=== PATIENT | female | born 1980 | race African-American/Black ===

== ENCOUNTER 2019-01-19 15:00 | Emergency (ER) | payer OTHER ==
[2019-01-19 15:17] VITALS: BP 118/64; PULSE 85; TEMP 97.8; BMI 27.3
--- NOTE | 2019-01-19 15:19 | PDOC ---
Rapid Medical Evaluation Chief Complaint: Pain Time Seen by Provider: 01/19/19 15:17 Medical Evaluation: Allergies Allergy/AdvReac Type Severity Reaction Status Date / Time No Known Allergies Allergy Verified 01/19/19 15:12 Vital Signs Temp Pulse Resp BP Pulse Ox 97.8 F 85 17 118/64 96 01/19/19 15:13 01/19/19 15:13 01/19/19 15:13 01/19/19 15:13 01/19/19 15:13 01/19/19 15:18 Pt c/o: rt heel pain, believes it is gout,denies increased temperature or redness to area Pt on brief exam: no edema or erythema, tender to calcanus region Pt ordered for: cbc, uric acid and heel xray Pt to proceed to the ED Discharge Disposition - Diagnosis Heel pain - Referrals - Patient Instructions - Post Discharge Activity
--- NOTE | 2019-01-19 16:22 | PDOC ---
History of Present Illness - General Chief Complaint: Pain Stated Complaint: RT. FOOT PAIN Time Seen by Provider: 01/19/19 15:17 History Source: Patient Exam Limitations: No Limitations - History of Present Illness Initial Comments: 01/19/19 16:23 38 year old female with surgical history of and medical history of gout presents for right foot pain x 3 weeks. Reports she usually gets an injection in her foot when she has pain. Denies numbness or tingling in toes. Occurred: reports: other (3 weeks ) Lower Extremity Pain Location: right: foot Method of Injury: Yes: unknown Modifying Factors: improves with: None Lower Ext. Injury Location - Specific Injury Location Hips: bilateral hip: no evidence of injury Legs: bilateral: normal inspection Knees: bilateral no evidence of injury Ankle: bilateral no evidence of injury Foot: bilateral foot no evidence of injury Extremity Pain Location - Extremity Pain Location Extremity Pain Locations: right: foot Past History - Travel Traveled outside of the country in the last 30 days: No Close contact w/someone who was outside of country & ill: No - Past Medical History Allergies/Adverse Reactions: Allergies Allergy/AdvReac Type Severity Reaction Status Date / Time risperidone Allergy Verified 01/19/19 16:08 Home Medications: Ambulatory Orders Depakote 0 mg 01/19/19 Gabapentin [Neurontin] 300 mg PO TID 01/19/19 Naproxen 500 mg PO BID #14 tablet 01/19/19 COPD: No - Immunization History Immunization Up to Date: Yes - Suicide/Smoking/Psychosocial Hx Smoking History: Never smoked Information on smoking cessation initiated: No Hx Alcohol Use: No Drug/Substance Use Hx: No Review of Systems - Review of Systems Able to Perform ROS?: Yes Is the patient limited Vietnamese proficient: No Constitutional: No: Chills, Fever HEENTM: No: Nose Congestion, Throat Pain, Throat Swelling Respiratory: No: Orthopnea, Wheezing Cardiac (ROS): No: Edema, Lightheadedness ABD/GI: No: Poor Appetite, Poor Fluid Intake : No: Burning, Incontinence Musculoskeletal: Yes: Joint Pain. No: Back Pain, Joint Swelling, Muscle Pain, Neck Pain Neurological: No: Headache, Numbness, Paresthesia, Seizure, Weakness *Physical Exam - Vital Signs Last Vital Signs Temp Pulse Resp BP Pulse Ox 97.8 F 85 17 118/64 96 01/19/19 15:13 01/19/19 15:13 01/19/19 15:13 01/19/19 15:13 01/19/19 15:13 - Physical Exam General Appearance: Yes: Nourished. No: Appropriately Dressed, Apparent Distress HEENT: positive: FABIANA, TMs Normal, Pharynx Normal Neck: positive: Supple. negative: Lymphadenopathy (R), Lymphadenopathy (L) Respiratory/Chest: positive: Lungs Clear Cardiovascular: positive: Regular Rhythm, Regular Rate Musculoskeletal: positive: Vertebral Tenderness Extremity: negative: Swelling, Calf Tenderness, Erythema, Inflammation Integumentary: negative: Normal Color, Warm, Erythema, Jaundice, Diaphoresis Neurologic: positive: Fully Oriented ED Treatment Course - LABORATORY CBC & Chemistry Diagram: 01/19/19 16:10 Medical Decision Making - Medical Decision Making 01/19/19 16:29 38 year old female with surgical history of and medical history of gout presents for right foot pain x 3 weeks. Plan analgesia uric acid , cbc ordered 01/19/19 17:43 uric acid: 5.8 wnl cbc with normal wbc rx: naproxen *DC/Admit/Observation/Transfer Diagnosis at time of Disposition: Heel pain Qualifiers: Laterality: right Qualified Code(s): M79.671 - Pain in right foot - Discharge Dispostion Disposition: HOME Condition at time of disposition: Good Decision to Admit order: No - Prescriptions Prescriptions: Naproxen 500 mg PO BID #14 tablet - Referrals - Patient Instructions Printed Discharge Instructions: DI for Foot Pain Additional Instructions: Please call primary physician for follow up appointment - Post Discharge Activity Forms/Work/School Notes: Back to Work
[2019-01-19] MEDS ORDERED: NAPROXEN 500 MG TABLET (FP) PO ONE (16:29)
[2019-01-19] MEDS ORDERED: NAPROXEN 500 MG TABLET (FP) ONE ×2 (16:37→16:40)
[2019-01-19 16:41] LABS: BASO % 0.6 % (0-2.0); EOS % 5.6 % (0-4.5); HEMATOCRIT 38.3 % (32.4-45.2); HEMOGLOBIN 12.9 GM/dL (10.7-15.3); LYMPH % 44.4 % (8-40); MCH 30.8 pg (25.7-33.7); MCHC 33.6 g/dl (32.0-36.0); MEAN CELL VOLUME 91.9 fl (80-96); MEAN PLT VOLUME 9.1 fl (7.5-11.1); NEUT % 42.4 % (42.8-82.8); PLATELET COUNT 237 K/MM3 (134-434); RBC 4.17 M/mm3 (3.60-5.2); RDW 13.5 % (11.6-15.6); WHITE BLOOD COUNT 5.1 K/mm3 (4.0-10.0)
== END 2019-01-19 17:54 | disposition home or self-care (01) ==
LOC: JER 15:00 → JERFT 15:00
DX: M79.671 Pain in right foot (principal)
CPT/HCPCS: 36415; 73630-TC-RT-FY; 84550; 85025; 99282-25